=== PATIENT | male | born 1990 | race Hispanic/Latino ===

== ENCOUNTER 2021-06-29 21:36 | Emergency (ER) | payer SELFPAY ==
[2021-06-29] MEDS ORDERED: LIDOCAINE 1% 20 ML MDV ONE (22:44)
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
[2021-06-30 00:45] VITALS: BP 145/87; TEMP 98.5; O2SAT 99
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
== END 2021-06-30 00:19 | disposition home or self-care (01) ==
LOC: ER 21:36
PROC: 0CQ1XZZ Repair Lower Lip, External Approach (ICD-10-PCS; principal; 2021-06-30)
DX: S01.511A Laceration without foreign body of lip, initial encounter (principal); S60.221A Contusion of right hand, initial encounter; V49.40XA Driver injured in collision with unspecified motor vehicles in traffic accident, initial encounter
CPT/HCPCS: 99283